=== PATIENT | female | born 1965 | race Caucasian/White ===

== ENCOUNTER → 2023-09-20 12:47 | Outpatient (REF) | payer OTHER, SELFPAY | LOC: HWWDC 12:47 | PROVIDERS: ATTENDING PHYSICIAN Family Medicine | DX: Z12.31 Encounter for screening mammogram for malignant neoplasm of breast (principal) | CPT/HCPCS: 77063; 77067 ==

== ENCOUNTER → 2023-10-10 11:37 | Outpatient (REF) | payer OTHER, SELFPAY | LOC: HWRAD 11:37 | PROVIDERS: ATTENDING PHYSICIAN Student in an Organized Health Care Education/Training Program | DX: M79.89 Other specified soft tissue disorders (principal); M54.50 Low back pain, unspecified | CPT/HCPCS: 72110; 73140 ==